=== PATIENT | male | born 1955 | race Caucasian/White ===

== ENCOUNTER 2023-12-19 06:14 | Day surgery (SDC) | payer OTHER, SELFPAY ==
[2023-12-16 13:28] VITALS: BMI 33.3
--- NOTE | 2023-12-17 15:49 | PTCARENOTE ---
Abnormal EKG 12/16/23. Dr. Mccoy aware. No intervention needed.
[2023-12-19] VITALS (18 sets, daily range): BP systolic 89–147; BP diastolic 43–102; BMI 33.3
[2023-12-19 07:14] LABS: Glucose - Point of Care 139 mg/dl (70-99)
[2023-12-19] MEDS: NORMOSOL-R 1000 IV (07:15)
[2023-12-19] MEDS: ROXICODONE 5 MG PO (09:15)
[2023-12-19] MEDS: LOPRESSOR 5 MG IV (09:40)
--- NOTE | 2023-12-19 11:33 | CON.CAR ---
Addendum entered and electronically signed by Alessandro Guerrero MD 12/19/23 15:37:
I saw and examined the patient.
The Lime Sludge Mixer's note was reviewed and I agree with the note.
Comment: Briefly, 68-year-old man presenting for hemorrhoidectomy who developed SVT following the procedure
I reviewed the twelve-lead ECG from 12/19/2023 9:39 AM which shows SVT - short RP tachycardia which seems most consistent with atrial tachycardia or AVNRT
Reportedly SVT broke with IV Lopressor
Currently maintaining sinus rhythm
Start low-dose metoprolol for treatment of SVT
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
Plan for outpatient follow-up in 4 to 6 weeks to reassess symptoms and review monitor results
Original Note:
Consultation
Consultation Request
Date/Time Consultation Requested: 12/19/23
Date/Time Consultation Performed: 12/19/23
Requesting Provider: Dr. Carlos
Performing Provider: Dr. Guerrero
Reason for Consultation: Tachycardia post-op
Medical History
-
History of Present Illness:
Patient had palpitations post-surgery and cardiology was consulted. Patient came to for elective hemorrhoid surgery today and while in SDS after surgery he was noted to have abrupt onset tachycardia with HR in the 140s, but no associated chest
pain or SOB. Patient had ECG and then was given Lopressor 5 mg IV x1 that slowed rhythm and then on repeat ECG patient was in SR. Patient reports that at home he has an episode of palpitations and near syncope sometimes associated with neck
tightness at least once a week. Overall the frequency has been increasing in the last year. Patient was seen by cardiology for preoperative evaluation prior to a planned bronchoscopy for tracheal nodule. At that time patient was able to complete a
Lexiscan nuclear stress test that showed normal perfusion without ischemia, he did not have any ectopy at that time.
PMH:
Palpitations
Coronary calcification on CT scan 02/07/23
COPD
Former smoker
HTN
Hep C
h/o MRSA
Past Medical History
Past Medical History: Other (in HPI)
Past Surgical History: Orthopedic and Other (s/p bronch 03/2023)
Social History
Tobacco: Former Smoker (smoked 2 ppd for 45 years, quit in 2020)
Alcohol: None
Drug: None
Personal:
Living: Alone
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
Family History
Family History: CAD and Cancer
Allergies / Home Medications
Allergy/AdvReac Type Severity Reaction Status Date / Time
No Known Allergies Allergy Verified 12/19/23 07:00
Medication Instructions Recorded Confirmed Type
amlodipine 5 mg tablet 5 mg PO DAILY 03/11/23 12/19/23 History
atorvastatin 20 mg tablet 20 mg PO DAILY 03/11/23 12/19/23 History
lisinopril 20 1 tab PO DAILY 03/11/23 12/19/23 History
mg-hydrochlorothiazide 12.5 mg
tablet
metformin 500 mg tablet 500 mg PO DAILY 03/11/23 12/19/23 History
sertraline 100 mg tablet 100 mg PO DAILY 03/11/23 12/19/23 History
ibuprofen 200 mg tablet (Advil) 400 mg PO Q6H PRN pain 12/17/23 12/19/23 History
Review of Systems
-
History Source: Patient and Family (daughter in law bedside during HPI)
All other systems: Negative unless noted
Physical Exam
Vital Signs
Temp Pulse Resp BP Pulse Ox
97.9 F 73 13 101/80 97
12/19/23 08:41 12/19/23 11:00 12/19/23 11:00 12/19/23 11:00 12/19/23 11:00
GEN: NAD. AAOx3
HEENT: EOMI, MMM
LUNGS: Clear anterolaterally without wheeze
CV: Reg, S1/S2, no murmur
ABD: soft, BS+, NT, ND
EXT: No clubbing, cyanosis, lesions or edema B/L
NEURO: Gross non-focal
SKIN: Warm, dry and pink. No rash
Lab Results
ECG reviewed by me with SVT, looks like Atach.
Impression / Plan
-
PCP: Dr. Rob Reich
Cardiology: Dr. Guerrero
Impression:
Palpitations post-op 12/19/23
SVT, likely atrial tachycardia
Palpitations prior to admission
s/p hemorrhoid surgery 12/19/[address] scan 02/07/23
COPD
Former smoker
HTN
Hep C
h/o MRSA
Lexiscan nuclear stress test 02/25/23: intermediate risk based on pharmacologic imaging, no perfusion abnormalities, normal LVEF 55%
Plan:
-Patient had palpitations post-surgery and cardiology was consulted. Patient came to for elective hemorrhoid surgery today and while in SDS after surgery he was noted to have abrupt onset tachycardia with HR in the 140s, but no associated chest
pain or SOB. Patient had ECG and then was given Lopressor 5 mg IV x1 that slowed rhythm and then on repeat ECG patient was in SR. Patient reports that at home he has an episode of palpitations and near syncope sometimes associated with neck
tightness at least once a week. Overall the frequency has been increasing in the last year. Patient was seen by cardiology for preoperative evaluation prior to a planned bronchoscopy for tracheal nodule. At that time patient was able to complete a
Lexiscan nuclear stress test that showed normal perfusion without ischemia, he did not have any ectopy at that time.
-ECGs reviewed by me and appear to be Atach, but could also be some other type of SVT. Patient responded to Lopressor 5 mg IV x1 and remains in SR. He was asymptomatic with today's episode.
-Will add Toprol XL 25 mg daily. BP in SDS is 97/50. Will stop outpatient dose of amlodipine 5 mg daily.
-Cont usual dose of lisinopril/HCTZ 20/12.5 mg daily.
-Arranged for patient to have a 7 day CAM monitor applied at the [facility] once he is discharged from [facility] today.
-Outpatient cardiology f/u arranged.
== END 2023-12-19 12:10 | disposition home or self-care (01) ==
LOC: SDS 06:14
PROVIDERS: ATTENDING PHYSICIAN Surgery; CONSULT PHYSICIAN Internal Medicine Cardiovascular Disease; FAMILY PHYSICIAN Family Medicine
DX: K64.3 Fourth degree hemorrhoids (principal)
CPT/HCPCS: 46947; 88304; 36415; 82962; 87070; 93005

== ENCOUNTER → 2024-02-24 08:21 | Outpatient (REF) | payer OTHER, SELFPAY | LOC: RCS 08:21 | PROVIDERS: ATTENDING PHYSICIAN Physician Assistant Medical; FAMILY PHYSICIAN Family Medicine | DX: I47.19 Other supraventricular tachycardia (principal) | CPT/HCPCS: 93306 ==

== ENCOUNTER 2024-09-07 10:31 | Inpatient (IN) | payer OTHER, SELFPAY ==
[2024-08-10 08:39] VITALS: BMI 34.2
[2024-08-10 08:59] LABS: Hematocrit 41.1 % (39.0-52.0); Hemoglobin 14.4 g/dL (13.0-18.0); Mean Corpuscular Hgb 32.2 pg (27.0-31.0); Mean Corpuscular Volume 91.9 fL (80.0-94.0); Mean Platelet Volume 10.1 fL (7.4-10.4); Platelet Count 189 10^3/uL (130-400); Red Blood Cell Count 4.47 10^6/uL (4.70-6.10); Red Cell Dist. Width 13.6 % (11.5-14.5)
[2024-08-10 09:25] LABS: ALT (SGPT) 24 U/L (0-50); AST (SGOT) 25 U/L (17-59); Albumin 4.5 g/dl (3.5-5.0); Alkaline Phosphatase 43 U/L (38-126); Blood Urea Nitrogen 18 mg/dl (9-20); Calcium 9.4 mg/dl (8.4-10.2); Carbon Dioxide 30 mmol/L (22-30); Chloride 103 mmol/L (98-107); Estimated Creatinine Clearance 67 ml/min; Glucose 117 mg/dl (70-99); Potassium 4.4 mmol/L (3.5-5.1); Sodium 146 mmol/L (135-145); Total Bilirubin 0.7 mg/dl (0.2-1.3); Total Protein 7.5 g/dl (6.3-8.2); eGFR > 60.00
[2024-08-10 09:31] LABS: Glycohemoglobin (HgbA1c) 6.6 % (4.0-5.6)
[2024-09-01 12:39] VITALS: BMI 34.2
[2024-09-07] VITALS (11 sets, daily range): BP systolic 89–155; BP diastolic 61–81; PULSE 62; BMI 34.2
[2024-09-07 11:07] LABS: Glucose - Point of Care 138 mg/dl (70-99)
[2024-09-07] MEDS: BACTROBAN NASAL 1 GRAM NASAL (11:09)
[2024-09-07] MEDS: CELEBREX 200 MG PO (11:09)
[2024-09-07] MEDS: TYLENOL 650 MG PO ×3 (11:09→20:56)
[2024-09-07] MEDS: VANCOCIN 530 MG IV (12:10)
--- NOTE | 2024-09-07 12:37 | W.PN.UPDATE ---
Update Note
Progress Note Update
R TKA Dr. Melo 09/07/24
SVT-/% burden on home monitor-controlled with beta tai-monitor on tele
COPD-mild on PFTs 2021
TPO
-incentive spirometry
-monitor O2 sats
NIDDM
Obesity
Hx Osteomyelitis-followed by ID-probable MSSA colonization
-Cefadroxil ppx d/c
-continue intranasal Mupirocin x 14d bid
-control sugars and add Lantus while inpatient given hyperglycemic effect of surgery
--- NOTE | 2024-09-07 12:52 | W.DS.TRANS ---
DC Summary - Community Relations Rep
-
Discharge Instructions:
Sleep Apnea Risk Intermediate
Discharge Diagnosis/Procedures R TKA Dr. Melo 09/07/24
Diet Diabetic, Carb Controlled
Activity With Walker
Driving Restrictions No driving
Bathing Restrictions OK to Shower
Other Services PT
Instructions:
Stand-Alone Forms: Total Hip/Knee Replacement D/C
Changes to Home Medications: Yes
Discharge Medications:
DC Medications w/original date entered in [employer]
atorvastatin 20 mg tablet 20 mg PO DAILY 03/11/23
lisinopril 20 mg-hydrochlorothiazide 12.5 mg tablet 1 tab PO DAILY 03/11/23
sertraline 100 mg tablet 100 mg PO DAILY 03/11/23
metformin 500 mg tablet,extended release 24 hr 500 mg PO DAILY 09/01/24
metoprolol succinate 50 mg tablet,extended release 24 hr 50 mg PO DAILY 09/01/24
Saccharomyces boulardii 250 mg capsule (Florastor) 250 mg PO BID #1 cap 09/07/24
acetaminophen 325 mg tablet (Tylenol) 650 mg (2 x 325 mg) PO QID #1 tab 09/07/24
aspirin 325 mg tablet 325 mg PO DAILY blood clot prevention #1 tab 09/07/24
cefadroxil 500 mg capsule 500 mg PO BID infection prevention #14 caps 09/07/24
celecoxib 100 mg capsule 100 mg PO BID Anti-inflammatory #14 caps 09/07/24
docusate sodium 100 mg capsule (Colace) 100 mg PO BID stool softner #1 cap 09/07/24
magnesium hydroxide 400 mg/5 mL oral suspension (Milk of Magnesia) 30 ml PO HS PRN Constipation #1 mL 09/07/24
mupirocin 2 % topical ointment 1 applic topical BID infection prevention #0 grams 09/07/24
ondansetron 4 mg disintegrating tablet 4 mg PO Q6H PRN n/v #20 tabs 09/07/24
oxycodone 5 mg tablet 5 mg PO Q6H PRN 1 tab moderate pain, 2 tabs severe pain #30 tabs 09/07/24
sennosides 8.6 mg tablet (Senokot) 17.2 mg (2 x 8.6 mg) PO BID laxative #2 tabs 09/07/24
Home Medication Changes
Saccharomyces boulardii 250 mg capsule (Florastor) 250 mg PO BID #1 cap 09/07/24
acetaminophen 325 mg tablet (Tylenol) 650 mg (2 x 325 mg) PO QID #1 tab 09/07/24
aspirin 325 mg tablet 325 mg PO DAILY blood clot prevention #1 tab 09/07/24
cefadroxil 500 mg capsule 500 mg PO BID infection prevention #14 caps 09/07/24
celecoxib 100 mg capsule 100 mg PO BID Anti-inflammatory #14 caps 09/07/24
docusate sodium 100 mg capsule (Colace) 100 mg PO BID stool softner #1 cap 09/07/24
magnesium hydroxide 400 mg/5 mL oral suspension (Milk of Magnesia) 30 ml PO HS PRN Constipation #1 mL 09/07/24
mupirocin 2 % topical ointment 1 applic topical BID infection prevention #0 grams 09/07/24
ondansetron 4 mg disintegrating tablet 4 mg PO Q6H PRN n/v #20 tabs 09/07/24
oxycodone 5 mg tablet 5 mg PO Q6H PRN 1 tab moderate pain, 2 tabs severe pain #30 tabs 09/07/24
sennosides 8.6 mg tablet (Senokot) 17.2 mg (2 x 8.6 mg) PO BID laxative #2 tabs 09/07/24
Pending Results: No
[2024-09-07 14:57] LABS: Glucose - Point of Care 109 mg/dl (70-99)
[2024-09-07] MEDS: ROXICODONE 5 MG PO (15:10)
--- NOTE | 2024-09-07 15:50 | PTCARENOTE ---
Pt arrived to [facility] from PACU s/p R TKR. Pt AAOx3, NV intact, R knee dressing with scant amount of drainage. Pt states no pain at this time. Oriented to call navarrete and room, bed locked and in lowest position, call navarrete within reach.
[2024-09-07] MEDS: ULTRAM PO (16:05)
[2024-09-07 16:23] LABS: Glucose - Point of Care 152 mg/dl (70-99)
[2024-09-07] MEDS: LANTUS 0.05 UNITS SC (16:55)
[2024-09-07] MEDS: LIPITOR 20 MG PO (16:56)
[2024-09-07] MEDS: NOVOLOG FLEXPEN-MODERATE RESISTANCE 1 UNITS SC (16:56)
[2024-09-07] MEDS: GLUCOPHAGE XR EXTENDED RELEASE 500 MG PO (16:56)
[2024-09-07] MEDS: ZOLOFT 100 MG PO (16:56)
[2024-09-07] MEDS: NORMOSOL-R/PLASMALYTE-A 1000 IV (16:59)
[2024-09-07] MEDS: ULTRAM 50 MG PO ×2 (17:00→22:09)
[2024-09-07] MEDS: ASPIRIN 325 MG PO (17:00)
[2024-09-07] MEDS: BACTROBAN 2% OINTMENT 1 APPLIC NASAL (20:45)
[2024-09-07] MEDS: ANCEF 5 IV (20:55)
[2024-09-07] MEDS: TORADOL 15 MG IV (20:55)
[2024-09-07] MEDS: SENOKOT 17.2 MG PO (20:55)
[2024-09-07] MEDS: COLACE 100 MG PO (20:55)
[2024-09-07 21:38] LABS: Glucose - Point of Care 204 mg/dl (70-99)
[2024-09-07] MEDS: PEPCID 20 MG PO (22:09)
[2024-09-07] MEDS: NEURONTIN 300 MG PO (22:09)
[2024-09-08] MEDS: TYLENOL PO
[2024-09-08 03:27] VITALS: BP 91/53
[2024-09-08] MEDS: ANCEF 5 IV (04:10)
[2024-09-08] MEDS: TYLENOL 650 MG PO ×2 (04:10→08:06)
[2024-09-08 04:21] VITALS: BP 149/91
[2024-09-08] MEDS: ROXICODONE 5 MG PO (04:23)
[2024-09-08 08:02] VITALS: BP 144/72
[2024-09-08 08:02] LABS: Glucose - Point of Care 182 mg/dl (70-99)
[2024-09-08] MEDS: LANTUS 0.05 UNITS SC (08:04)
[2024-09-08] MEDS: NOVOLOG FLEXPEN-MODERATE RESISTANCE 1 UNITS SC (08:05)
[2024-09-08] MEDS: COLACE 100 MG PO (08:06)
[2024-09-08] MEDS: SENOKOT 17.2 MG PO (08:06)
[2024-09-08] MEDS: TOPROL XL 50 MG PO (08:06)
[2024-09-08] MEDS: GLUCOPHAGE XR EXTENDED RELEASE 500 MG PO (08:06)
[2024-09-08] MEDS: ULTRAM 50 MG PO (08:06)
[2024-09-08] MEDS: ZOLOFT 100 MG PO (08:06)
[2024-09-08] MEDS: ASPIRIN 325 MG PO (08:07)
[2024-09-08] MEDS: LIPITOR 20 MG PO (08:07)
[2024-09-08] MEDS: BACTROBAN 2% OINTMENT 1 APPLIC NASAL (08:07)
[2024-09-08] MEDS: TORADOL 15 MG IV (08:07)
--- NOTE | 2024-09-08 09:28 | W.PN.ORTHO ---
Today's Communication / Plan
-
d/c
Assessment
.
Distal Motor Intact: Yes
Dressing:
Clean, dry and intact.
Assessment:
SVT-1/1% burden on home monitor-controlled with beta tai-stable on tele
COPD-mild on PFTs 2021
TPO
-incentive spirometry
- O2 sats stable on RA
NIDDM
Obesity
Hx Osteomyelitis-followed by ID-probable MSSA colonization with ? hx MRSA
-Vanco added herrera-op
-Cefadroxil ppx d/c
-continue intranasal Mupirocin x 14d bid
-control sugars and add Lantus while inpatient given hyperglycemic effect of surgery
Plan
.
Surgery / Date: R TWILA Melo 09/07/24
DVT Prophylaxis: Aspirin
Activity:
Out of bed.
PT/OT
Discharge Plan: Home w/ Outpatient PT
Subjective
.
.:
Patient resting comfortably.
Vital Signs and Labs
.
Vital Signs and Labs:
Lab Results
08/10/24 07:04
08/10/24 07:04
Temp Pulse Resp BP Pulse Ox
98.2 F 66 17 144/72 95
09/08/24 08:02 09/08/24 08:02 09/08/24 08:02 09/08/24 08:02 09/08/24 08:02
Non-invasive Hgb result: 12.2
Physical Exam
-
HEENT: No pallor, cyanosis, or jaundice. Throat clear.
NECK: Supple. No JVD.
RESPIRATORY: Lungs clear to auscultation.
CVS: S1, S2 normal. RRR.� No murmur, rub or gallop.
ABDOMEN: Soft, non-tender. No distension. BS+/normal.
EXTREMITIES: strength equal, no calf pain with palpation
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 No focal deficits. inspector coated fabrics grossly intact
[2024-09-08 09:46] VITALS: BP 156/77; PULSE 64
--- NOTE | 2024-09-08 10:22 | CM ---
Met with pt at bedside
Pt reports he lives in senior care facility in an apartment, alone. 12 steps to apartment floor, 3 steps to enter apt.
Reports will have support from friends in complex
Retired, independent, active
DME - rolling walker, single point cane, shower rails
SNF - [facility] in past
HH - has had in past, unsure of agency
Has ride home at discharge
PCP - Rob Reich
Pharm - [facility]
Has appt scheduled for outpatient PT on at [facility]. Has Rx. Friends to transport
Discussed IMM
Plan - home with outpatient PT
[2024-09-08 10:40] VITALS: BP 150/69; PULSE 79; O2SAT 97
[2024-09-08] MEDS: FLUAD (65 yr+) 2024-2025 FORMULA 0.5 ML IM (10:57)
[2024-09-08 11:24] VITALS: BP 144/82
== END 2024-09-08 13:01 | disposition home or self-care (01) | DRG 470 ==
LOC: 2 SOUTH 10:31
PROVIDERS: ADMITTING PHYSICIAN Specialist; FAMILY PHYSICIAN Family Medicine; REFERRING PHYSICIAN Internal Medicine Cardiovascular Disease
PROC: 0SRC0J9 Replacement of Right Knee Joint with Synthetic Substitute, Cemented, Open Approach (ICD-10-PCS; 2024-09-07)
PROC: 3E02340 Introduction of Influenza Vaccine into Muscle, Percutaneous Approach (ICD-10-PCS; 2024-09-08)
DX: M17.11 Unilateral primary osteoarthritis, right knee (principal); R04.2 Hemoptysis; I47.19 Other supraventricular tachycardia; Z68.34 Body mass index [BMI] 34.0-34.9, adult; E66.9 Obesity, unspecified; H54.62 Unqualified visual loss, left eye, normal vision right eye; I10 Essential (primary) hypertension; E11.9 Type 2 diabetes mellitus without complications; F32.A Depression, unspecified; J44.9 Chronic obstructive pulmonary disease, unspecified; B18.2 Chronic viral hepatitis C; Z22.321 Carrier or suspected carrier of Methicillin susceptible Staphylococcus aureus; Z86.14 Personal history of Methicillin resistant Staphylococcus aureus infection; Z79.82 Long term (current) use of aspirin; Z79.84 Long term (current) use of oral hypoglycemic drugs; Z79.1 Long term (current) use of non-steroidal anti-inflammatories (NSAID); Z23 Encounter for immunization
CPT/HCPCS: 36415; 73560; 80053; 82962; 83036; 85027; 87070; 90662; 97116; 97162; 97166; C1713; C1776; G0008

== ENCOUNTER → 2025-09-29 08:00 | Outpatient (REF) | payer OTHER, SELFPAY | LOC: RAD 08:00 | PROVIDERS: ATTENDING PHYSICIAN Specialist; FAMILY PHYSICIAN Family Medicine | DX: H44.60 Unspecified retained (old) intraocular foreign body, magnetic (principal) | CPT/HCPCS: 70030 ==